=== PATIENT | male | born 1975 | race American Indian/Alaskan Native ===

== ENCOUNTER 2017-02-04 11:56 | Emergency (ER) | payer SELFPAY ==
[2017-02-04 13:04] VITALS: BP 141/84
--- NOTE | 2017-02-04 18:23 | Emergency Department Report ---
- General Chief complaint: Skin/Abscess/Foreign Body Stated complaint: SPIDER BITE Time Seen by Provider: 02/04/17 17:48 Source: patient Mode of arrival: Ambulatory Limitations: No Limitations - History of Present Illness Initial comments: This is a 41-year-old male nontoxic, well nourished in appearance, no acute signs of distress presents to the ED complaining of boil to the occipital scalp region x3 days. Patient stated this has been draining pus. Patient denies any trauma to the region. Denies headache, stiff neck, fever, chills, nausea, vomiting, chest pain or shortness of breath, numbness or tingling. Patient states allergies to shrimp. Denies past medical history. Patient stated last tetanus received last year in 2015. MD complaint: abscess/boil -: Gradual, days(s) (3) Tetanus Up to Date: yes (2015) Severity: mild Severity scale (0 -10): 6 Quality: aching Consistency: constant Improves with: none Worsens with: none Context: none Associated symptoms: denies other symptoms Treatments Prior to Arrival: none - Related Data Previous Rx's Medication Instructions Recorded Last Taken Type Gentamicin 0.3% Ophth Soln 1 drops OP Q4H #5 ml 03/17/13 Unknown Rx Hydrocodone Bit/Acetaminophen 1 each PO Q4-6H PRN #10 tablet 03/17/13 Unknown Rx [Lortab 5-500 Tablet] Sulfamethoxazole/Trimethoprim 1 each PO BID #20 tablet 03/17/13 Unknown Rx [Bactrim DS] Cephalexin [Keflex] 500 mg PO BID #20 capsule 12/19/13 Unknown Rx HYDROcodone/APAP 5-325 [[place] 1 each PO Q6HR PRN #20 tablet 12/19/13 Unknown Rx 5/325] Sulfamethoxazole/Trimethoprim 1 each PO BID #20 tablet 12/19/13 Unknown Rx [Bactrim Ds] Sulfamethoxazole/Trimethoprim 1 each PO BID #14 tablet 02/04/17 Unknown Rx [Bactrim DS TAB] traMADol [Ultram] 50 mg PO Q6HR PRN #15 tablet 02/04/17 Unknown Rx Allergies Allergy/AdvReac Type Severity Reaction Status Date / Time shrimp Allergy Vomiting Uncoded 03/17/13 19:32 Abscess Boil HPI - HPI Chief Complaint: Skin/Abscess/Foreign Body Stated Complaint: SPIDER BITE Time Seen by Provider: 02/04/17 17:48 Home Medications: Previous Rx's Medication Instructions Recorded Last Taken Type Gentamicin 0.3% Ophth Soln 1 drops OP Q4H #5 ml 03/17/13 Unknown Rx Hydrocodone Bit/Acetaminophen 1 each PO Q4-6H PRN #10 tablet 03/17/13 Unknown Rx [Lortab 5-500 Tablet] Sulfamethoxazole/Trimethoprim 1 each PO BID #20 tablet 03/17/13 Unknown Rx [Bactrim DS] Cephalexin [Keflex] 500 mg PO BID #20 capsule 12/19/13 Unknown Rx HYDROcodone/APAP 5-325 [[place] 1 each PO Q6HR PRN #20 tablet 12/19/13 Unknown Rx 5/325] Sulfamethoxazole/Trimethoprim 1 each PO BID #20 tablet 12/19/13 Unknown Rx [Bactrim Ds] Sulfamethoxazole/Trimethoprim 1 each PO BID #14 tablet 02/04/17 Unknown Rx [Bactrim DS TAB] traMADol [Ultram] 50 mg PO Q6HR PRN #15 tablet 02/04/17 Unknown Rx Allergies/Adverse Reactions: Allergies Allergy/AdvReac Type Severity Reaction Status Date / Time shrimp Allergy Vomiting Uncoded 03/17/13 19:32 ED Review of Systems ROS: Stated complaint: SPIDER BITE Other details as noted in HPI Constitutional: denies: chills, fever Eyes: denies: eye pain, eye discharge, vision change ENT: denies: ear pain, throat pain Respiratory: denies: cough, shortness of breath, wheezing Cardiovascular: denies: chest pain, palpitations Endocrine: no symptoms reported Gastrointestinal: denies: abdominal pain, nausea, diarrhea Genitourinary: denies: urgency, dysuria Musculoskeletal: denies: back pain, joint swelling, arthralgia Skin: denies: rash, lesions Neurological: denies: headache, weakness, paresthesias Psychiatric: denies: anxiety, depression Hematological/Lymphatic: denies: easy bleeding, easy bruising ED Past Medical Hx - Past Medical History Previous Medical History?: No - Surgical History Past Surgical History?: No - Social History Smoking Status: Never Smoker Substance Use Type: None - Medications Home Medications: Home Medications Medication Instructions Recorded Confirmed Last Taken Type Gentamicin 0.3% Ophth Soln 1 drops OP Q4H #5 ml 03/17/13 Unknown Rx Hydrocodone Bit/Acetaminophen 1 each PO Q4-6H PRN #10 tablet 03/17/13 Unknown Rx [Lortab 5-500 Tablet] Sulfamethoxazole/Trimethoprim 1 each PO BID #20 tablet 03/17/13 Unknown Rx [Bactrim DS] Cephalexin [Keflex] 500 mg PO BID #20 capsule 12/19/13 Unknown Rx HYDROcodone/APAP 5-325 [[place] 1 each PO Q6HR PRN #20 tablet 12/19/13 Unknown Rx 5/325] Sulfamethoxazole/Trimethoprim 1 each PO BID #20 tablet 12/19/13 Unknown Rx [Bactrim Ds] Sulfamethoxazole/Trimethoprim 1 each PO BID #14 tablet 02/04/17 Unknown Rx [Bactrim DS TAB] traMADol [Ultram] 50 mg PO Q6HR PRN #15 tablet 02/04/17 Unknown Rx ED Physical Exam - General Limitations: No Limitations General appearance: alert, in no apparent distress - Head Head exam: Present: atraumatic, normocephalic, normal inspection - Eye Eye exam: Present: normal appearance, PERRL, EOMI. Absent: scleral icterus, conjunctival injection, nystagmus, periorbital swelling, periorbital tenderness Pupils: Present: normal accommodation - ENT ENT exam: Present: normal exam, normal orophraynx, mucous membranes moist, TM's normal bilaterally, normal external ear exam - Neck Neck exam: Present: normal inspection, full ROM. Absent: tenderness, meningismus, lymphadenopathy, thyromegaly - Respiratory Respiratory exam: Present: normal lung sounds bilaterally. Absent: respiratory distress, wheezes, rales, rhonchi, stridor, chest wall tenderness, accessory muscle use, decreased breath sounds, prolonged expiratory - Cardiovascular Cardiovascular Exam: Present: regular rate, normal rhythm, normal heart sounds. Absent: bradycardia, tachycardia, irregular rhythm, systolic murmur, diastolic murmur, rubs, gallop - GI/Abdominal GI/Abdominal exam: Present: soft, normal bowel sounds. Absent: distended, tenderness, guarding, rebound, rigid, diminished bowel sounds - Rectal Rectal exam: Present: deferred - Extremities Exam Extremities exam: Present: normal inspection, full ROM, normal capillary refill. Absent: tenderness, pedal edema, joint swelling, calf tenderness - Back Exam Back exam: Present: normal inspection, full ROM. Absent: tenderness, CVA tenderness (R), CVA tenderness (L), muscle spasm, paraspinal tenderness, vertebral tenderness, rash noted - Neurological Exam Neurological exam: Present: alert, oriented X3, CN II-XII intact, normal gait, reflexes normal - Psychiatric Psychiatric exam: Present: normal affect, normal mood - Skin Skin exam: Present: warm, dry, intact, normal color. Absent: rash - Other Other exam information: 1 cm boil with pus drainage noted to the occipital lobe region. No fluctuance or induration noted. Tender to touch. No swelling noted. ED Course Vital Signs 02/04/17 13:01 Temperature 98.4 F Pulse Rate 64 Respiratory 16 Rate Blood Pressure 141/84 O2 Sat by Pulse 100 Oximetry - Reevaluation(s) Reevaluation #1: 02/04/17 18:23 Patient is speaking in full sentences with no signs of distress noted. ED Medical Decision Making - Medical Decision Making This is a 41-year-old male on the presents with open draining boil to the occipital lobe region. Upon examination the boil is draining and I squeezed about 1 mL of purulent drainage area and there is no fluctuance or drainage noted. There is no swelling noted. Patient received Bactrim at discharge and Ultram and was instructed to not operate any machinery while taking Ultram due to sedation/drowsiness. Patient was notified that if symptoms of increased swelling to return to emergency room for possible I&D. Patient was instructed to follow-up with a primary care doctor in 3-5 days or if symptoms worsen and continue return to emergency room as soon as possible possible. At time time of discharge, the patient does not seem toxic or ill in appearance. No acute signs of distress noted. Patient agrees to discharge treatment plan of care. No further questions noted by the patient. Critical care attestation.: If time is entered above; I have spent that time in minutes in the direct care of this critically ill patient, excluding procedure time. ED Disposition Clinical Impression: Boil Disposition: DC-01 TO HOME OR SELFCARE Is pt being admited?: No Does the pt Need Aspirin: No Condition: Stable Instructions: Abscess (ED), Sulfamethoxazole/Trimethoprim (By mouth), Tramadol (By mouth) Additional Instructions: Follow-up with a primary care doctor in 3-5 days or if symptoms worsen such as increased swelling and continue return to emergency room as soon as possible possible. Take full course of antibiotics as prescribed. Do not operate any machinery while taking Ultram due to sedation/drowsiness. Prescriptions: Sulfamethoxazole/Trimethoprim [Bactrim DS TAB] 1 each PO BID #14 tablet traMADol [Ultram] 50 mg PO Q6HR PRN #15 tablet PRN Reason: Pain Referrals: PRIMARY CAREMD [Primary Care Provider] - 3-5 Days BROOKLYNN CORDERO MD [Staff Physician] - 3-5 Days [facility] [Outside] - 3-5 Days [facility] [Outside] - 3-5 Days Forms: Work/School Release Form(ED)
== END 2017-02-04 18:53 | disposition home or self-care (01) ==
LOC: ED 11:56
DX: L02.821 Furuncle of head [any part, except face] (principal); Z91.013 Allergy to seafood
CPT/HCPCS: 99282